=== PATIENT | female | born 1950 | race Caucasian/White ===

== ENCOUNTER 2016-09-07 19:18 | Emergency (ER) | payer MEDICARE, BC ==
--- NOTE | 2016-09-07 19:48 | ER Document Report ---
ED Medical Screen (RME) - General Chief Complaint: S/S of Possible Stroke Stated Complaint: STROKE LIKE SYMPTOMS Notes: Patient is complaining of a headache and feeling very nervous. She's concerned that she may be having another stroke. She's had a dull headache all week, but it's gotten bad this afternoon. Her blood pressures been going up and down she' s been nervous and shaking. Has not had any specific neurologic deficits. 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 Patient had a "mini stroke " about 3-1/2 years ago. TRAVEL OUTSIDE OF THE [place] IN LAST 30 DAYS: No - Related Data Allergies/Adverse Reactions: codeine [Codeine] Allergy (Unknown, Verified 09/07/16 19:32) Past Medical History - Past Medical History Cardiac Medical History: Reports: Hx Hypercholesterolemia, Hx Hypertension Neurological Medical History: Reports: Hx Cerebrovascular Accident Renal/ Medical History: Denies: Hx Peritoneal Dialysis Psychiatric Medical History: Reports: Hx Depression Past Surgical History: Reports: Hx Section, Hx Cholecystectomy, Hx Hysterectomy, Hx Vascular Surgery - Right carotid endarterectomy Physical Exam - Vital signs Vitals: Temp Pulse Resp BP Pulse Ox 98.4 F 94 20 172/116 H 98 09/07/16 19:21 09/07/16 19:21 09/07/16 19:21 09/07/16 19:21 09/07/16 19:21 Course - Vital Signs Vital signs: Temp Pulse Resp BP Pulse Ox 98.4 F 94 20 172/116 H 98 09/07/16 19:21 09/07/16 19:21 09/07/16 19:21 09/07/16 19:21 09/07/16 19:21
[2016-09-07 21:36] LABS: ABSOLUTE BASOPHILS # (AUTO) 0.2 10^3/uL (0.0-0.2); ABSOLUTE EOSINOPHILS # (AUTO) 0.3 10^3/uL (0.0-0.6); ABSOLUTE LYMPHOCYTES (AUTO) 2.3 10^3/uL (0.5-4.7); ABSOLUTE MONOCYTES (AUTO) 0.8 10^3/uL (0.1-1.4); ABSOLUTE NEUT (AUTO) 4.8 10^3/uL (1.7-8.2); BASOPHILS % (AUTO) 2.8 % (0-2); EOSINOPHILS % (AUTO) 3.7 % (0-6); HEMATOCRIT 44.6 % (36.0-47.0); HEMOGLOBIN 14.5 g/dL (12.0-15.5); HGB HCT DIFFERENCE -1.1; LYMPHOCYTES % (AUTO) 27.5 % (13-45); MEAN CORPUSCULAR HEMOGLOBIN 28.9 pg (27.0-33.4); MEAN CORPUSCULAR HGB CONC 32.5 g/dL (32.0-36.0); MEAN CORPUSCULAR VOLUME 89 fl (80-97); MONOCYTES % (AUTO) 9.5 % (3-13); RED BLOOD COUNT 5.01 10^6/uL (3.72-5.28); SEGMENTED NEUTROPHILS % (AUTO) 56.5 % (42-78); WHITE BLOOD COUNT 8.4 10^3/uL (4.0-10.5)
[2016-09-07 22:02] LABS: ALANINE AMINOTRANSFERASE 22 U/L (9-52); ALBUMIN 4.4 g/dL (3.5-5.0); ALKALINE PHOSPHATASE 89 U/L (38-126); ANION GAP 14 (5-19); ASPARTATE AMINO TRANSFERASE 30 U/L (14-36); BILIRUBIN,DIRECT 0.3 mg/dL (0.0-0.4); BILIRUBIN,TOTAL 0.5 mg/dL (0.2-1.3); BLOOD UREA NITROGEN 12 mg/dL (7-20); CALCIUM 11.1 mg/dL (8.4-10.2); CARBON DIOXIDE 25 mmol/L (22-30); CHLORIDE 103 mmol/L (98-107); CREATINE KINASE 45 U/L (30-135); CREATININE RESULT 0.82 mg/dL (0.52-1.25); GLUCOSE 98 mg/dL (75-110); POTASSIUM 4.2 mmol/L (3.6-5.0); SODIUM 142.3 mmol/L (137-145); TOTAL PROTEIN 7.8 g/dL (6.3-8.2)
[2016-09-07] MEDS ORDERED: LISINOPRIL 10 MG TABLET PO ONE (22:15)
[2016-09-07 22:19] LABS: TROPONIN I < 0.012 ng/mL
--- NOTE | 2016-09-07 22:19 | ER Document Report ---
ED General - General Chief Complaint: S/S of Possible Stroke Stated Complaint: STROKE LIKE SYMPTOMS Notes: Patient is a 66-year-old female who presents with concerns about elevated blood pressure. States that she developed a gradual onset, dull, throbbing, diffuse headache today. Nothing improved or worsen the headache. States she's had similar headaches when she's had high blood pressure in the past that she took her blood pressure home and noted a systolic blood pressure of 220. This prompted her to come to the emergency department. She did attempt to treat her symptoms at home by doubling her dose of atenolol to 100 mg. States since doing so she has had near complete resolution of her headache. She denies any associated weakness, numbness confusion, vomiting, neck pain, chest pain or shortness of breath. She has not seen her primary care doctor regarding today' s concerns. She has no prior history of aneurysmal bleeds. States this headache feels identical to prior headaches that she's had in association with hypertension. TRAVEL OUTSIDE OF THE [place] IN LAST 30 DAYS: No - Related Data Allergies/Adverse Reactions: codeine [Codeine] Allergy (Unknown, Verified 09/07/16 19:32) Past Medical History - General Information source: Patient - Social History Smoking Status: Never Smoker Chew tobacco use (# tins/day): No Frequency of alcohol use: None Drug Abuse: None Lives with: Spouse/Significant other Family History: Reviewed & Not Pertinent Patient has suicidal ideation: No Patient has homicidal ideation: No - Past Medical History Cardiac Medical History: Reports: Hx Hypercholesterolemia, Hx Hypertension Neurological Medical History: Reports: Hx Cerebrovascular Accident Renal/ Medical History: Denies: Hx Peritoneal Dialysis Psychiatric Medical History: Reports: Hx Depression Past Surgical History: Reports: Hx Section, Hx Cholecystectomy, Hx Hysterectomy, Hx Vascular Surgery - Right carotid endarterectomy - Immunizations Hx Diphtheria, Pertussis, Tetanus Vaccination: - unknown Review of Systems - Review of Systems Notes: Constitutional: Negative for fever. HENT: Negative for sore throat. Eyes: Negative for visual changes. Cardiovascular: Negative for chest pain. Respiratory: Negative for shortness of breath. Gastrointestinal: Negative for abdominal pain, vomiting or diarrhea. Genitourinary: Negative for dysuria. Musculoskeletal: Negative for back pain. Skin: Negative for rash. Neurological: Positive for headaches, negative for weakness or numbness. 10 point ROS negative except as marked above and in HPI. Physical Exam - Vital signs Vitals: Temp Pulse Resp BP Pulse Ox 98.4 F 94 20 172/116 H 98 09/07/16 19:21 09/07/16 19:21 09/07/16 19:21 09/07/16 19:21 09/07/16 19:21 Interpretation: Hypertensive Notes: PHYSICAL EXAMINATION: GENERAL: Well-appearing, well-nourished and in no acute distress. HEAD: Atraumatic, normocephalic. EYES: Pupils equal round and reactive to light, extraocular movements intact, sclera anicteric, conjunctiva are normal. ENT: nares patent, oropharynx clear without exudates. Moist mucous membranes. NECK: Normal range of motion, supple without lymphadenopathy LUNGS: Breath sounds clear to auscultation bilaterally and equal. No wheezes rales or rhonchi. HEART: Regular rate and rhythm without murmurs ABDOMEN: Soft, nontender, normoactive bowel sounds. No guarding, no rebound. No masses appreciated. EXTREMITIES: Normal range of motion, no pitting or edema. No cyanosis. NEUROLOGICAL: Face symmetric. Tongue protrudes midline. Extraocular motions intact. Pupils are 2 mm and equally reactive. Normal speech, normal gait. 5 out of 5 strength in both the distal and proximal upper and lower extremities bilaterally. Sensation is grossly intact throughout. Finger to nose testing normal. Pronator drift normal. PSYCH: Normal mood, normal affect. SKIN: Warm, Dry, normal turgor, no rashes or lesions noted. Course - Re-evaluation Re-evalutation: 09/07/16 22:16 Patient presents with headache that is now resolved in the setting of having elevated blood pressure at home up to 220 systolic. Patient has had similar presentations in the past. She takes only atenolol 100 mg daily for her blood pressure. Physical examination is unremarkable without any focal neurologic deficits. Patient denies any acute onset of the headache and is described as a gradual progressively worsening headache. The headache did start 3 hours prior to arrival in the emergency and the CT of the head was obtained within 6 hours of headache onset. This is normal without any evidence of subarachnoid hemorrhage for which I have a low clinical index of suspicion. Will therefore not pursue a lumbar puncture at this time. The remainder patient's laboratories are unremarkable. She denies any chest pain or shortness of breath. I do not suspect a pulmonary embolism, aortic dissection or ACS. Patient states recent scan the emergency department tonight is her primary concern was her blood pressure. She will be started on lisinopril 20 mg daily in addition to her atenolol. I dose of this is been given to her here in the emergency department.At this time will discharge with return precautions and follow-up recommendations. Verbal discharge instructions given a the bedside and opportunity for questions given. Medication warnings reviewed. Patient is in agreement with this plan and has verbalized understanding of return precautions and the need for primary care follow-up in the next 24-72 hours. - Vital Signs Vital signs: Temp Pulse Resp BP Pulse Ox 98.2 F 94 16 165/83 H 94 09/07/16 22:50 09/07/16 20:29 09/07/16 22:50 09/07/16 22:50 09/07/16 22:50 - Laboratory Result Diagrams: 09/07/16 21:20 09/07/16 21:20 Laboratory results interpreted by me: 09/07/16 09/07/16 21:20 21:20 RDW 15.0 H Basophils % 2.8 H Calcium 11.1 H - Diagnostic Test Radiology reviewed: Image reviewed, Reports reviewed Radiology results interpreted by me: 09/08/16 03:13 CT head: No acute intracranial bleed - EKG Interpretation by Me Additional EKG results interpreted by me: 09/08/16 03:14 Normal sinus rhythm. Rate 64. No ST elevations or depressions. LVH. QTC is 417 Discharge - Discharge Clinical Impression: Essential hypertension Headache Qualifiers: Headache type: unspecified Headache chronicity pattern: acute headache Intractability: not intractable Qualified Code(s): R51 - Headache Condition: Good Disposition: HOME, SELF-CARE Additional Instructions: You were seen today for blood pressure that was high. This is a long-term risk factor for multiple medical problems including heart attack and stroke. However, the blood pressure in of itself will not cause you to have an acute stroke or heart attack over the course of just several days or weeks. You need to have a gradual reduction of your blood pressure back to normal levels over the next several months in conjunction with your primary care physician. Return if you develop recurrent headache, weakness, numbness, chest pain, pass out, or have any other symptoms that are concerning to you. Prescriptions: Lisinopril 20 mg PO DAILY #30 tablet Referrals: KAIA HOWELL MD [Primary Care Provider] - Follow up in 3-5 days
[2016-09-07 23:00] VITALS: BP 165/83
--- NOTE | 2016-09-08 22:24 | EKG REPORT ---
SEVERITY:- ABNORMAL ECG - SINUS RHYTHM PROBABLE LEFT ATRIAL ABNORMALITY PROBABLE LEFT VENTRICULAR HYPERTROPHY : Confirmed by: Marisabel Bennett MD 08-Sep-2016 22:24:19
== END 2016-09-07 22:50 | disposition home or self-care (01) ==
LOC: ER 19:18
DX: I10 Essential (primary) hypertension (principal); R51 Headache; Z79.899 Other long term (current) drug therapy; Z86.73 Personal history of transient ischemic attack (TIA), and cerebral infarction without residual deficits; Z88.5 Allergy status to narcotic agent
CPT/HCPCS: 93005; 99285; 36415; 82553; 82550; 85025; 80053; 84484; 70450; 93010; A9270

== ENCOUNTER 2016-12-05 17:45 | Inpatient (IN) | payer MEDICARE, BC ==
[2016-12-05 18:24] LABS: ABSOLUTE BASOPHILS # (AUTO) 0.1 10^3/uL (0.0-0.2); ABSOLUTE EOSINOPHILS # (AUTO) 0.3 10^3/uL (0.0-0.6); ABSOLUTE LYMPHOCYTES (AUTO) 1.6 10^3/uL (0.5-4.7); ABSOLUTE MONOCYTES (AUTO) 0.8 10^3/uL (0.1-1.4); ABSOLUTE NEUT (AUTO) 5.6 10^3/uL (1.7-8.2); BASOPHILS % (AUTO) 1.2 % (0-2); EOSINOPHILS % (AUTO) 3.4 % (0-6); HEMATOCRIT 38.7 % (36.0-47.0); HEMOGLOBIN 12.5 g/dL (12.0-15.5); HGB HCT DIFFERENCE -1.2; LYMPHOCYTES % (AUTO) 18.6 % (13-45); MEAN CORPUSCULAR HEMOGLOBIN 30.1 pg (27.0-33.4); MEAN CORPUSCULAR HGB CONC 32.4 g/dL (32.0-36.0); MEAN CORPUSCULAR VOLUME 93 fl (80-97); MONOCYTES % (AUTO) 10.1 % (3-13); RED BLOOD COUNT 4.16 10^6/uL (3.72-5.28); RED CELL DISTRIBUTION WIDTH 14.1 % (11.5-14.0); SEGMENTED NEUTROPHILS % (AUTO) 66.7 % (42-78); WHITE BLOOD COUNT 8.3 10^3/uL (4.0-10.5)
--- NOTE | 2016-12-05 18:29 | ER Document Report ---
ED Syncope and Near Syncope - General Chief Complaint: Syncope Stated Complaint: SYNCOPE Time Seen by Provider: 12/05/16 18:27 Mode of Arrival: Medic Information source: Patient, Emergency Med Personnel TRAVEL OUTSIDE OF THE [place] IN LAST 30 DAYS: No - HPI Patient complains to provider of: Fainting Episode witnessed (by whom): No Multiple episodes (how many): 2 When did episodes begin: THIS AFTERNOON When was most recent episode: JUST PRIOR TO CALL TO EMS Symptoms prior to episode: Lightheaded Position/Activity at time of episode: Sitting - STOOD UP FROM BARSTOOL Quality of pain: Other - SORE THROAT Severity: Mild Context: Collapsed, Lost consciousness - Related Data Allergies/Adverse Reactions: codeine [Codeine] Allergy (Unknown, Verified 09/07/16 19:32) Past Medical History - General Information source: Patient - Social History Smoking Status: Unknown if Ever Smoked Cigarette use (# per day): No Chew tobacco use (# tins/day): No Frequency of alcohol use: None Drug Abuse: None Lives with: Alone Family History: Reviewed & Not Pertinent Patient has suicidal ideation: No Patient has homicidal ideation: No - Past Medical History Cardiac Medical History: Reports: Hx Hypercholesterolemia, Hx Hypertension Pulmonary Medical History: Reports: None EENT Medical History: Reports: None Neurological Medical History: Reports: Hx Cerebrovascular Accident, Other - PARKINSON'S DIS. Endocrine Medical History: Reports: None Renal/ Medical History: Reports: None. Denies: Hx Peritoneal Dialysis Malignancy Medical History: Reports: None GI Medical History: Reports: None. Denies: Hx Hepatitis Musculoskeltal Medical History: Reports None Skin Medical History: Reports None Psychiatric Medical History: Reports: None, Hx Depression Past Surgical History: Reports: Hx Section, Hx Cholecystectomy, Hx Hysterectomy, Hx Vascular Surgery - Right carotid endarterectomy - Immunizations Hx Diphtheria, Pertussis, Tetanus Vaccination: - unknown Review of Systems - Review of Systems Constitutional: Chills, Diaphoresis, Weakness. denies: Fever EENT: Throat pain Cardiovascular: Syncope, Lightheaded. denies: Heart racing Respiratory: No symptoms reported Gastrointestinal: No symptoms reported Female Genitourinary: Post menopausal Musculoskeletal: No symptoms reported Skin: No symptoms reported Neurological/Psychological: Lost consciousness Physical Exam - Vital signs Vitals: Temp Pulse Resp BP Pulse Ox 97.7 F 66 16 85/56 L 88 L 12/05/16 18:02 12/05/16 18:02 12/05/16 18:02 12/05/16 18:02 12/05/16 18:02 Interpretation: Hypotensive. No: Tachycardic, Tachypneic, Febrile - General General appearance: Appears well, Alert In distress: None - HEENT Head: Normocephalic Eyes: Normal. No: Pale conjunctiva Conjunctiva: Normal Ears: Normal Nasal: Normal Mouth/Lips: Normal Mucous membranes: Normal Pharynx: Erythema - SLIGHT. No: Exudate, Peritonsillar abscess, Tonsillar hypertrophy, Uvular edema Neck: Normal - Respiratory Respiratory status: No respiratory distress Breath sounds: Normal - Cardiovascular Rhythm: Regular Heart sounds: Normal auscultation Murmur: No - Abdominal Inspection: Normal Bowel sounds: Normal - Extremities General upper extremity: Normal inspection General lower extremity: Normal inspection - Neurological Neuro grossly intact: Yes Cognition: Normal Orientation: AAOx4 - Psychological Associated symptoms: Normal affect, Normal mood - Skin Skin Temperature: Warm Skin Moisture: Dry Skin Color: Normal Skin Turgor: Elastic Course - Vital Signs Vital signs: Temp Pulse Resp BP Pulse Ox 97.7 F 66 12 126/56 H 100 12/05/16 18:02 12/05/16 18:02 12/05/16 21:46 12/05/16 21:46 12/05/16 21:31 - Laboratory Result Diagrams: 12/05/16 18:02 12/05/16 18:02 Laboratory results interpreted by me: 12/05/16 12/05/16 12/05/16 18:02 18:02 19:55 RDW 14.1 H BUN 29 H Creatinine 2.41 H Est GFR ( Amer) 24 L Est GFR (Non-Af Amer) 20 L Glucose 114 H Direct Bilirubin 0.6 H AST 161 H ALT 284 H Alkaline Phosphatase 220 H Ur Leukocyte Esterase SMALL H - EKG Interpretation by Mn EKG shows normal: Sinus rhythm. abnormal: ST-T Waves - T ABNLS ANT/LAT., NS Rate: Normal Rhythm: NSR - Consults DR. CAVAZOS Time consulted: 22:25 Consulted provider: will come to ER Discharge - Discharge Clinical Impression: Syncope and collapse, Abnormal liver function tests Hypotension Qualifiers: Hypotension type: unspecified hypotension type Qualified Code(s): I95.9 - Hypotension, unspecified Renal failure, acute Qualifiers: Acute renal failure type: unspecified Qualified Code(s): N17.9 - Acute kidney failure, unspecified Condition: Fair Disposition: ADMITTED OBSERVATION Unit Admitted: Telemetry
[2016-12-05 18:37] LABS: ALBUMIN 3.7 g/dL (3.5-5.0); ANION GAP 12 (5-19); ASPARTATE AMINO TRANSFERASE 161 U/L (14-36); BLOOD UREA NITROGEN 29 mg/dL (7-20); CALCIUM 9.5 mg/dL (8.4-10.2); CARBON DIOXIDE 23 mmol/L (22-30); CHLORIDE 104 mmol/L (98-107); CREATININE RESULT 2.41 mg/dL (0.52-1.25); GLUCOSE 114 mg/dL (75-110); POTASSIUM 4.1 mmol/L (3.6-5.0); SODIUM 138.7 mmol/L (137-145); TOTAL PROTEIN 6.9 g/dL (6.3-8.2)
[2016-12-05 18:39] LABS: ALANINE AMINOTRANSFERASE 284 U/L (9-52); ALKALINE PHOSPHATASE 220 U/L (38-126); BILIRUBIN,DIRECT 0.6 mg/dL (0.0-0.4); BILIRUBIN,TOTAL 0.6 mg/dL (0.2-1.3); CREATINE KINASE 63 U/L (30-135)
[2016-12-05] MEDS ORDERED: NORMAL SALINE 1000 ML 1,000 ML IV ONE (18:44)
--- NOTE | 2016-12-05 18:48 | RADIOLOGY REPORT (SQ) ---
EXAM DESCRIPTION: CHEST SINGLE VIEW COMPLETED DATE/TIME: 12/05/2016 6:39 pm REASON FOR STUDY: syncope COMPARISON: March 2013 EXAM PARAMETERS: NUMBER OF VIEWS: One view. TECHNIQUE: Single frontal radiographic view of the chest acquired. RADIATION DOSE: NA LIMITATIONS: None. FINDINGS: LUNGS AND PLEURA: No opacities, masses or pneumothorax. No pleural effusion. MEDIASTINUM AND HILAR STRUCTURES: No masses. Contour normal. HEART AND VASCULAR STRUCTURES: Heart normal in size. Normal vasculature. BONES: No acute findings. HARDWARE: None in the chest. OTHER: No other significant finding. IMPRESSION: NO ACUTE RADIOGRAPHIC FINDING IN THE CHEST. TECHNICAL DOCUMENTATION: JOB ID: [id number]
[2016-12-05 18:49] LABS: CREATINE KINASE MB 0.91 ng/mL (<4.55)
[2016-12-05 18:51] LABS: TROPONIN I < 0.012 ng/mL
--- NOTE | 2016-12-05 19:59 | EKG REPORT ---
SEVERITY:- ABNORMAL ECG - SINUS RHYTHM NONSPECIFIC T ABNORMALITIES, ANT-LAT LEADS : Confirmed by: Hans Dey MD 05-Dec-2016 19:59:13
[2016-12-05 20:22] LABS: APPEARANCE,URINE SLIGHTLY-CLOUDY; BILIRUBIN,URINE NEGATIVE (NEGATIVE); GLUCOSE, URINE NEGATIVE (NEGATIVE); KETONES,URINE NEGATIVE (NEGATIVE); LEUKOCYTE ESTERASE,URINE SMALL (NEGATIVE); NITRITE,URINE NEGATIVE (NEGATIVE); PROTEIN,URINE NEGATIVE (NEGATIVE); URINE SPECIFIC GRAVITY 1.006; UROBILINOGEN,URINE NEGATIVE mg/dL (<2.0)
[2016-12-06 00:54] LABS: ANION GAP 8 (5-19); BLOOD UREA NITROGEN 25 mg/dL (7-20); CALCIUM 8.6 mg/dL (8.4-10.2); CARBON DIOXIDE 23 mmol/L (22-30); CHLORIDE 109 mmol/L (98-107); CREATININE RESULT 1.76 mg/dL (0.52-1.25); GLUCOSE 103 mg/dL (75-110); POTASSIUM 3.8 mmol/L (3.6-5.0); SODIUM 140.2 mmol/L (137-145)
[2016-12-06] MEDS ORDERED: IPRATROPIUM/ALBUTEROL 0.5-2.5 MG/3 ML AMPUL NEB PRN (02:39)
[2016-12-06] MEDS ORDERED: ACETAMINOPHEN 325 MG TABLET PO PRN (02:44)
[2016-12-06] MEDS ORDERED: PROMETHAZINE HCL 25 MG TABLET PO PRN (02:44)
--- NOTE | 2016-12-06 03:33 | PDOC H&P ---
History of Present Illness Admission Date/PCP: 12/05/16 23:00 [facility] Patient complains of: syncope History of Present Illness: TAVIA PATEL is a 66 year old female with underlying hypertension , prior stroke, which has left her with mild occasional expressive aphasia and mild right facial droop, chronic back pain, COPD, history of nephrolithiasis, mild depression without suicidal or homicidal ideation, who presents to the emergency room for evaluation of above complaint. Patient has been discussed with emergency room physician who evaluated the patient. Patient describes poor appetite over the last 2 days; "not interested in food." She has had nausea and dry heaves. Chronic diarrhea, without recent change. The morning of the fourth, she began experiencing "trapped gas" epigastric pain that decreased with lying down. Later that day, she suffered 2 unwitnessed syncopal episodes. Think she probably struck her head each time. Uncertain how long she was out, so to speak. Did not bite her tongue. No fecal or urinary incontinence. No seizure history. No prior syncopal episode. Denies any underlying biliary disease. States her urine has been no darker than usual. No recent change in her medications. Compliant with same. Was hypotensive initially upon arrival, but pressures have stabilized nicely with IV fluid. Complaining of only mild left elbow discomfort where she fell. Laboratory results are listed in [employer] and are reviewed. X-ray summary results are listed below, with full report(s) reviewed. . EKG reviewed. Social history/personal habits: . 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 No tobacco use for 2-1/2 years. No illicit drug use. Glass of wine 3 times a week. Allergies/adverse reactions are listed in [employer] and are reviewed. No problems with oxycodone. Home medications initially autopopulated into [employer] may not accurately reflect patient's true medications, dosages, and/or frequencies. Bottle review of medications with patient. REVIEW OF SYSTEMS: Constitutional: No fever or chills. Eyes: Wears glasses. ENT: No swallowing problems or complaints. Denies hearing loss. Pulmonary: No current complaints. Cardiovascular: See history and present illness. Gastrointestinal: See history and present illness. Skin: No current complaints, including rashes. Hematologic: Easy bruising. Neurologic: See history and present illness. Musculoskeletal: See history and present illness. Psychiatric: Mild depression. Denies suicidal or homicidal ideation Endocrine: No current complaints, including polyuria. Genitourinary: No current complaints, including dysuria. PHYSICAL EXAMINATION: 5 feet 6 inches tall. 58.8 kg. BMI 20.9 kg/m. Temperature 98.1. Pulse 71 and regular. Blood pressure 100/40. Respirations are 16 and unlabored. 94 % saturation on 2 L oxygen per nasal cannula. Thin otherwise well-developed somewhat chronically ill-appearing female who appears perhaps a bit older than her stated age. Pleasant awake alert and cooperative. No obvious distress other than somewhat anxious. Mild tremor. Skin is warm and dry. No grossly obvious evidence of rash in areas of skin examined. No subcutaneous nodules palpated. ENT: Hearing grossly normal to normal conversation. Tongue midline on protrusion pink and slightly moist. Eyes: No scleral icterus. Pupils equal and reactive to light at 4 mm. [place] conjunctivae. No raccoon eyes. Neck is supple and nontender to gentle active range of motion and palpation. Midline trachea. No palpable thyroid nodule mass enlargement or tenderness. Lymphatic: No palpable cervical or clavicular nodes. Neck and lymphatic exams limited by patient body habitus. Psychiatric: Reasonable insight into acute and chronic medical issues. Oriented to time location and why here. Lungs: Auscultation reveals clear and equal breath sounds bilaterally. No use of accessory respiratory muscles. Cardiovascular: Heart regular rate and rhythm, without gallop murmur or rub. No carotid or abdominal aortic bruits. No ankle or pedal edema. Palpable dorsalis pedis pulses. Abdomen:soft slightly distended nontender with positive bowel sounds. Unable to adequately evaluate abdomen for masses or organomegaly due to distention. Extremities: Feet are warm and dry. No calf tenderness to compression. No grossly obvious visual evidence of calf swelling. Gentle manipulation of lower extremities fails to reveal any obvious evidence of injury or instability to knees hips or ankles. Excellent active and passive range of motion of left elbow; no obvious evidence of injury or instability. Neurologic: Moves upper extremities grossly normally. Patellar reflexes absent. Absent Babinski. Light touch is intact at feet. Dorsiflexion and plantarflexion of feet 5 / 5 and symmetric. Past Medical History Cardiac Medical History: Reports: Hyperlipidema, Hypertension Denies: Congestive Heart Failure, DVT, Myocardial Infarction, Pulmonary Embolism Pulmonary Medical History: Reports: Chronic Obstructive Pulmonary Disease (COPD) Denies: Sleep Apnea EENT Medical History: Reports: Eyes - Glasses Denies: Ears, Throat Neurological Medical History: Reports: Ischemic CVA - Prior stroke; occasional mild expressive dysphasia and right facial droop, Other - PARKINSON'S DIS. Denies: Hemorrhagic CVA, Seizures Endocrine Medical History: Reports: Other - History of thyroid nodules, followed by ultrasound Denies: Diabetes Mellitus Type 1, Diabetes Mellitus Type 2, Hyperthyroidism, Hypothyroidism Renal/ Medical History: Reports: Other - History of nephrolithiasis Malignancy Medical History: Reports: None GI Medical History: Denies: Cirrhosis, Gastroesophageal Reflux Disease, Hepatitis, Peptic Ulcer Disease Musculoskeltal Medical History: Reports: Other - Chronic back pain Skin Medical History: Reports: None Psychiatric Medical History: Reports: None, Depression - Denies suicidal or homicidal ideation Denies: Alcohol Dependency, General Anxiety Disorder, Substance Abuse, Tobacco Dependency Hematology: Reports: Other - Easy bruising Infectious Medical History: Denies: Clostridium Difficile, Hepatitis B, Hepatitis C, Methicillin- Resistant Staph Aureus Past Surgical History Past Surgical History: Reports: Section, Cholecystectomy, Hysterectomy , Vascular Surgery - Right carotid endarterectomy Social History Information Source: Patient, Emergency Med Personnel, [facility] Records Lives with: Spouse/Significant other Smoking Status: Former Smoker Number of Years Smokin Last Time Smoked: 3 yrs ago Frequency of Alcohol Use: Occasional - Glass of wine 3 times a week Hx Recreational Drug Use: No Drugs: None Hx Prescription Drug Abuse: No - Advance Directive Resuscitation Status: Full Code Surrogate healthcare decision maker:: Family History Family History: Reviewed & Not Pertinent Parental Family History Reviewed: Yes - Mother of lung cancer; father at 79. Children Family History Reviewed: Yes - Daughter is hypertensive and diabetic. Sibling(s) Family History Reviewed.: Yes - Sister with rheumatoid arthritis. Medication/Allergy Home Medications: Aspirin [Aspirin 325 mg Tablet] 325 mg PO DAILY 12/05/16 Atenolol 100 mg PO DAILY 12/05/16 Atorvastatin Calcium 40 mg PO QHS 12/05/16 Gabapentin 300 mg PO QID 12/05/16 Hydrocodone/Acetaminophen [[place] 5-325 mg Tablet] 1 tab PO TID PRN 12/05/16 Omeprazole 20 mg PO DAILY 12/05/16 Venlafaxine HCl 75 mg PO DAILY 12/05/16 Allergies/Adverse Reactions: codeine [Codeine] Allergy (Unknown, Verified 12/06/16 02:41) Physical Exam Vital Signs: Temp Pulse Resp BP Pulse Ox 98.1 F 71 16 100/40 L 90 L 12/06/16 01:12 12/06/16 01:12 12/06/16 01:12 12/06/16 01:12 12/06/16 01:12 Intake & Output 12/05/16 12/06/16 12/07/16 00:59 00:59 00:59 Weight 58.8 kg Results Laboratory Results: 12/06/16 00:27 12/06/16 00:27 Sodium 140.2 Potassium 3.8 Chloride 109 H Carbon Dioxide 23 Anion Gap 8 BUN 25 H Creatinine 1.76 H Est GFR ( Amer) 35 L Est GFR (Non-Af Amer) 29 L Glucose 103 Calcium 8.6 Impressions: Chest X-Ray 12/05/16 18:16 IMPRESSION: NO ACUTE RADIOGRAPHIC FINDING IN THE CHEST. Assessment & Plan - Diagnosis (1) Blunt head trauma Qualifiers: Encounter type: initial encounter Qualified Code(s): S09.8XXA - Other specified injuries of head, initial encounter Is this a current diagnosis for this admission?: YesPlan: CT scan of brain without contrast. (2) Abnormal liver function tests Is this a current diagnosis for this admission?: YesPlan: Uncertain etiology. Denies underlying biliary disease. Follow-up chemistry. (3) Abnormal urinalysis Is this a current diagnosis for this admission?: YesPlan: Urine culture. We will forego antibiotics at this point in time. (4) Renal failure, acute Qualifiers: Acute renal failure type: unspecified Qualified Code(s): N17.9 - Acute kidney failure, unspecified Is this a current diagnosis for this admission?: YesPlan: Likely prerenal, due to decreased p.o. intake. Follow-up chemistry. Labs improved already with hydration. (5) Syncope and collapse Is this a current diagnosis for this admission?: YesPlan: Likely due to an element of dehydration. IV fluid. Orthostatic vital signs every 4 hours while awake starting at 7 AM. I have strongly encouraged patient not to get out of bed without notifying staff , to avoid a fall with injury. Knee high SCDs for DVT prophylaxis, along with subcutaneous heparin. Impression and plans were discussed with patient who concurs. Time spent in evaluation and management of patient: 67 minutes. (6) Chronic back pain Qualifiers: Back pain location: back pain in unspecified location Back pain laterality: unspecified Qualified Code(s): M54.9 - Dorsalgia, unspecified ; G89.29 - Other chronic pain Is this a current diagnosis for this admission?: YesPlan: No acute worsening of same. As needed pain medication. (7) Diastolic CHF Qualifiers: Congestive heart failure chronicity: chronic Qualified Code(s): I50.32 - Chronic diastolic (congestive) heart failure Is this a current diagnosis for this admission?: YesPlan: No evidence of exacerbation of same. Resume home medications as appropriate once these have been determined and reviewed. (8) HLD (hyperlipidemia) Qualifiers: Hyperlipidemia type: mixed hyperlipidemia Qualified Code(s): E78.2 - Mixed hyperlipidemia Is this a current diagnosis for this admission?: YesPlan: Resume home medications as appropriate once these have been determined and reviewed. (9) HTN (hypertension) Qualifiers: Hypertension type: essential hypertension Qualified Code(s): I10 - Essential (primary) hypertension Is this a current diagnosis for this admission?: YesPlan: We will hold antihypertensives at this point in time.
[2016-12-06 03:34] LABS: ADD ON TESTING BLD IN LAB ACKNOWLEDGE
--- NOTE | 2016-12-06 06:12 | RADIOLOGY REPORT (SQ) ---
EXAM DESCRIPTION: CT HEAD WITHOUT COMPLETED DATE/TIME: 12/06/2016 5:49 am REASON FOR STUDY: syncope w/head trauma R82.90 UNSPECIFIED ABNORMAL FINDINGS IN URINE I10 ESSENTIA L (PRIMARY) HYPERTENSION S09.8XXA OTHER SPECIFIED INJURIES OF HEAD, INITIAL ENCOUNTER COMPARISON: None. TECHNIQUE: Axial images acquired through the brain without intravenous contrast. Images reviewed wi th bone, brain and subdural windows. Images stored on PACS. All CT scanners at this facility use dose modulation, iterative reconstruction, and/or weight based d osing when appropriate to reduce radiation dose to as low as reasonably achievable (ALARA). [facility]: Dose Right [facility]: CareDose [facility]: Dose Right [facility]: Teradose 4D [facility]: [employer] RADIATION DOSE: Up-to-date CT equipment and radiation dose reduction techniques were employed. CTDIv ol: 64.6 mGy. DLP: 1163 mGy-cm. mGy. LIMITATIONS: None. FINDINGS: VENTRICLES: Normal size and contour. CEREBRUM: No masses. No hemorrhage. No midline shift. Normal truong/white matter differentiation. N o evidence for acute infarction. Mild white matter microangiopathy. Mild cerebral volume loss. CEREBELLUM: No masses. No hemorrhage. No alteration of density. No evidence for acute infarction. EXTRAAXIAL SPACES: No fluid collections. No masses. ORBITS AND GLOBE: No intra- or extraconal masses. Normal contour of globe without masses. CALVARIUM: No fracture. PARANASAL SINUSES: No fluid or mucosal thickening. SOFT TISSUES: No mass or hematoma. OTHER: No other significant finding. IMPRESSION: No acute findings. TECHNICAL DOCUMENTATION: JOB ID: [id number] Quality ID # [id number]: Final reports with documentation of one or more dose reduction techniques (e.g., Au tomated exposure control, adjustment of the mA and/or kV according to patient size, use of iterative reconstruction technique) 2010 [employer]- All Rights Reserved
[2016-12-06 06:34] LABS: ALANINE AMINOTRANSFERASE 224 U/L (9-52); ALBUMIN 3.4 g/dL (3.5-5.0); ALKALINE PHOSPHATASE 204 U/L (38-126); ANION GAP 9 (5-19); ASPARTATE AMINO TRANSFERASE 109 U/L (14-36); BILIRUBIN,DIRECT 0.5 mg/dL (0.0-0.4); BILIRUBIN,TOTAL 0.6 mg/dL (0.2-1.3); BLOOD UREA NITROGEN 23 mg/dL (7-20); CALCIUM 9.3 mg/dL (8.4-10.2); CARBON DIOXIDE 23 mmol/L (22-30); CHLORIDE 110 mmol/L (98-107); CREATININE RESULT 1.34 mg/dL (0.52-1.25); GLUCOSE 90 mg/dL (75-110); POTASSIUM 3.7 mmol/L (3.6-5.0); TOTAL PROTEIN 6.6 g/dL (6.3-8.2)
[2016-12-06] MEDS: HEPARIN SOD (PORCINE) 5,000 UNIT/ML 1 ML SYRINGE SUBCUT SCH ×2 (09:38→21:34)
[2016-12-06] MEDS: ASPIRIN 325 MG TABLET PO SCH (09:38)
[2016-12-06] MEDS: NORMAL SALINE 1000 ML 1,000 ML IV PRN (17:29)
--- NOTE | 2016-12-06 18:06 | PDOC PROGRESS REPORT ---
Subjective Progress Note for:: 12/06/16 Subjective:: She is felling better and the diarrhea and loss of appetite have improved.She is now full admit. Physical Exam Vital Signs: Temp Pulse Resp BP Pulse Ox 98.1 F 76 20 126/64 H 95 12/06/16 16:00 12/06/16 16:13 12/06/16 16:00 12/06/16 16:13 12/06/16 16:13 General appearance: PRESENT: no acute distress, cooperative, well-developed, well-nourished Head exam: PRESENT: atraumatic, normocephalic Eye exam: PRESENT: EOMI, PERRLA Ear exam: PRESENT: normal external ear exam, TM's normal bilaterally Mouth exam: PRESENT: neck supple, tongue midline Neck exam: PRESENT: full ROM Respiratory exam: PRESENT: decreased breath sounds, symmetrical Cardiovascular exam: PRESENT: +S1, +S2 Pulses: PRESENT: +2 pedal pulses bilateral GI/Abdominal exam: PRESENT: normal bowel sounds, soft Rectal exam: PRESENT: deferred Extremities exam: PRESENT: full ROM Musculoskeletal exam: PRESENT: full ROM Neurological exam: PRESENT: alert, awake, oriented to person, oriented to place , oriented to time Psychiatric exam: PRESENT: normal mood Results Impressions: Chest X-Ray 12/05/16 18:16 IMPRESSION: NO ACUTE RADIOGRAPHIC FINDING IN THE CHEST. Head CT 12/06/16 00:00 IMPRESSION: No acute findings. Assessment & Plan - Diagnosis (1) Acute kidney injury (nontraumatic) Is this a current diagnosis for this admission?: YesPlan: Ct with IV fluids normal saline at 75 cc/hr; Promethazine 6.25 mg q8h IV prn. Strict input/out chart; daily wt; monitor chemistries daily; Avoid nephrotoxics. (2) COPD (chronic obstructive pulmonary disease) Is this a current diagnosis for this admission?: YesPlan: Ct with Duonebs q6h prn. Smoking ceasstion counseling; Oxygen by N/C at 2 L/min prn. (3) HTN (hypertension) Qualifiers: Hypertension type: essential hypertension Qualified Code(s): I10 - Essential (primary) hypertension Is this a current diagnosis for this admission?: YesPlan: Avoid Losartan/HCTZ 100/25 and Atenolol 100 mg due to hypotension. 2 G sodium diet. (4) HLD (hyperlipidemia) Qualifiers: Hyperlipidemia type: mixed hyperlipidemia Qualified Code(s): E78.2 - Mixed hyperlipidemia Is this a current diagnosis for this admission?: YesPlan: Ct with Atorvastatin 40 mg qhs po; 200 mg cholesterol diet. (5) History of CVA (cerebrovascular accident) Is this a current diagnosis for this admission?: YesPlan: Ct with Aspirin 325 mg qd po. (6) Reflux esophagitis Is this a current diagnosis for this admission?: YesPlan: Ct with Prevacid 30 mg qd po since we do not have Omeprazole in our formulary. (7) DVT prophylaxis Is this a current diagnosis for this admission?: YesPlan: Ct with Heparin [id number] subcut q12h; SCD. - Time Time Spent with patient: 35 or more minutes Smoking Cessation Education: 3 to 10 minutes Medications reviewed and adjusted accordingly: Yes Anticipated discharge: Home Within: within 72 hours - Inpatient Certification Medical Necessity: Failure to Improve With Outpatient Therapy, Significant Comorbidiites Make Outpatient Treatment Too Risky, Need Close Monitoring Due to Risk of Patient Decompensation, Need For IV Fluids, Risk of Complication if Not Cared For in Hospital
[2016-12-06] MEDS ORDERED: ATORVASTATIN CALCIUM 40 MG TABLET PO SCH (22:00)
[2016-12-07] MEDS ORDERED: LANSOPRAZOLE 30 MG TAB.RAP.DR PO SCH (06:00)
[2016-12-07 06:16] LABS: ABSOLUTE EOSINOPHILS # (AUTO) 0.1 10^3/uL (0.0-0.6); ABSOLUTE LYMPHOCYTES (AUTO) 0.6 10^3/uL (0.5-4.7); ABSOLUTE MONOCYTES (AUTO) 0.6 10^3/uL (0.1-1.4); ABSOLUTE NEUT (AUTO) 7.4 10^3/uL (1.7-8.2); BASOPHILS % (AUTO) 0.6 % (0-2); EOSINOPHILS % (AUTO) 1.6 % (0-6); HEMOGLOBIN 12.3 g/dL (12.0-15.5); HGB HCT DIFFERENCE -0.1; LYMPHOCYTES % (AUTO) 6.6 % (13-45); MEAN CORPUSCULAR HEMOGLOBIN 30.4 pg (27.0-33.4); MEAN CORPUSCULAR HGB CONC 33.1 g/dL (32.0-36.0); MEAN CORPUSCULAR VOLUME 92 fl (80-97); MONOCYTES % (AUTO) 6.9 % (3-13); RED BLOOD COUNT 4.03 10^6/uL (3.72-5.28); RED CELL DISTRIBUTION WIDTH 13.7 % (11.5-14.0); SEGMENTED NEUTROPHILS % (AUTO) 84.3 % (42-78); WHITE BLOOD COUNT 8.8 10^3/uL (4.0-10.5)
[2016-12-07 06:34] LABS: ALANINE AMINOTRANSFERASE 176 U/L (9-52); ALBUMIN 3.4 g/dL (3.5-5.0); ALKALINE PHOSPHATASE 252 U/L (38-126); ANION GAP 13 (5-19); ASPARTATE AMINO TRANSFERASE 139 U/L (14-36); BILIRUBIN,TOTAL 1.4 mg/dL (0.2-1.3); BLOOD UREA NITROGEN 15 mg/dL (7-20); CALCIUM 9.1 mg/dL (8.4-10.2); CARBON DIOXIDE 21 mmol/L (22-30); CHLORIDE 108 mmol/L (98-107); CREATININE RESULT 0.82 mg/dL (0.52-1.25); GLUCOSE 86 mg/dL (75-110); POTASSIUM 3.7 mmol/L (3.6-5.0); SODIUM 141.7 mmol/L (137-145); TOTAL PROTEIN 6.1 g/dL (6.3-8.2)
[2016-12-07 07:33] VITALS: BP 145/71
[2016-12-07] MEDS: NORMAL SALINE 1000 ML 1,000 ML IV PRN (09:35)
[2016-12-07] MEDS: HEPARIN SOD (PORCINE) 5,000 UNIT/ML 1 ML SYRINGE SUBCUT SCH (09:35)
[2016-12-07] MEDS: ASPIRIN 325 MG TABLET PO SCH (09:35)
--- NOTE | 2016-12-07 10:03 | PDOC DISCHARGE SUMMARY ---
General - Admit/Disc Date/PCP Admission Date/Primary Care Provider: 12/06/16 16:15 KAIA HOWELL Discharge Date: 12/07/16 - Discharge Diagnosis (1) Acute kidney injury (nontraumatic) Is this a current diagnosis for this admission?: Yes (2) COPD (chronic obstructive pulmonary disease) Is this a current diagnosis for this admission?: Yes (3) HTN (hypertension) Is this a current diagnosis for this admission?: Yes (4) HLD (hyperlipidemia) Is this a current diagnosis for this admission?: Yes (5) History of CVA (cerebrovascular accident) Is this a current diagnosis for this admission?: Yes (6) Reflux esophagitis Is this a current diagnosis for this admission?: Yes (7) DVT prophylaxis Is this a current diagnosis for this admission?: Yes - Additional Information Resuscitation Status: Full Code Discharge Activity: Activity As Tolerated Home Medications: Aspirin [Aspirin 325 mg Tablet] 325 mg PO DAILY 12/05/16 Atenolol 100 mg PO DAILY 12/05/16 Atorvastatin Calcium 40 mg PO QHS 12/05/16 Gabapentin 300 mg PO QID 12/05/16 Hydrocodone/Acetaminophen [[place] 5-325 mg Tablet] 1 tab PO TID PRN 12/05/16 Omeprazole 20 mg PO DAILY 12/05/16 Venlafaxine HCl 75 mg PO DAILY 12/05/16 History of Present Illness History of Present Illness: TAVIA PATEL is a 66 year old female Hospital Course Hospital Course: 66 year old woman who was admitted for acute kidney injury/Hypotension and COPD. She wasa dmitted at telemetry floor and put on IV fluids,held antihypertensives and was on strict in put/out put and daily chemistries and weight. Alol nephrotoxics were held.She had Duonebs and smoking cessation done. She is stable and her kidney function is back to normal and she is back to her baseline and will discharged home today to follow up with her PCP next week. Physical Exam Vital Signs: Temp Pulse Resp BP Pulse Ox 99.5 F 96 20 145/71 H 94 12/07/16 08:00 12/07/16 08:00 12/07/16 08:00 12/07/16 08:00 12/07/16 08:00 Intake & Output 12/06/16 12/07/16 12/08/16 06:59 06:59 06:59 Intake Total 1559 Output Total 1000 Balance 559 General appearance: PRESENT: no acute distress, cooperative, well-developed, well-nourished Head exam: PRESENT: atraumatic, normocephalic Eye exam: PRESENT: EOMI, PERRLA Ear exam: PRESENT: TM's normal bilaterally Mouth exam: PRESENT: moist, neck supple, tongue midline Neck exam: PRESENT: full ROM Respiratory exam: PRESENT: clear to auscultation joshua, symmetrical Cardiovascular exam: PRESENT: +S1, +S2 Pulses: PRESENT: +2 pedal pulses bilateral Vascular exam: PRESENT: normal capillary refill GI/Abdominal exam: PRESENT: normal bowel sounds, soft Rectal exam: PRESENT: deferred Extremities exam: PRESENT: full ROM Musculoskeletal exam: PRESENT: full ROM Neurological exam: PRESENT: alert, awake, oriented to person, oriented to place , oriented to time, CN II-XII grossly intact Psychiatric exam: PRESENT: normal mood Results Laboratory Results: 12/07/16 05:44 12/07/16 05:44 12/07/16 12/07/16 05:44 05:44 WBC 8.8 RBC 4.03 Hgb 12.3 Hct 37.0 MCV 92 MCH 30.4 MCHC 33.1 RDW 13.7 Plt Count 213 Seg Neutrophils % 84.3 H Lymphocytes % 6.6 L Monocytes % 6.9 Eosinophils % 1.6 Basophils % 0.6 Absolute Neutrophils 7.4 Absolute Lymphocytes 0.6 Absolute Monocytes 0.6 Absolute Eosinophils 0.1 Absolute Basophils 0.0 Sodium 141.7 Potassium 3.7 Chloride 108 H Carbon Dioxide 21 L Anion Gap 13 BUN 15 Creatinine 0.82 Est GFR ( Amer) > 60 Est GFR (Non-Af Amer) > 60 Glucose 86 Calcium 9.1 Total Bilirubin 1.4 H AST 139 H ALT 176 H Alkaline Phosphatase 252 H Total Protein 6.1 L Albumin 3.4 L Impressions: Chest X-Ray 12/05/16 18:16 IMPRESSION: NO ACUTE RADIOGRAPHIC FINDING IN THE CHEST. Head CT 12/06/16 00:00 IMPRESSION: No acute findings.
== END 2016-12-07 12:22 | disposition home or self-care (01) | DRG 684 ==
LOC: ER 17:45 → EH 23:00 → UNDOADMOB 23:00 → 5 12-06 01:05 → EH 12-06 01:05 → 5 12-06 02:39 → EH 12-06 02:39 → OBSVTOIN 12-06 16:15
PROVIDERS: ADMIT Internal Medicine; ATTEND Internal Medicine
DX: N17.9 Acute kidney failure, unspecified (principal); I95.9 Hypotension, unspecified; I10 Essential (primary) hypertension; G20 Parkinson's disease; G89.29 Other chronic pain; M54.9 Dorsalgia, unspecified; E78.2 Mixed hyperlipidemia; J44.9 Chronic obstructive pulmonary disease, unspecified; K21.0 Gastro-esophageal reflux disease with esophagitis; R82.90 Unspecified abnormal findings in urine; Z86.73 Personal history of transient ischemic attack (TIA), and cerebral infarction without residual deficits; Z79.82 Long term (current) use of aspirin; Z79.899 Other long term (current) drug therapy
CPT/HCPCS: 36415; 70450; 71010; 80048; 80053; 81001; 82550; 82553; 83690; 83735; 84443; 84484; 85025; 87086; 93005; 93010; 99285; G0378; J1644; J7030

== ENCOUNTER → 2017-03-26 | Outpatient (CLI) | payer MEDICARE, BC ==
--- NOTE | 2017-03-26 16:34 | RADIOLOGY REPORT (SQ) ---
EXAM DESCRIPTION: CAROTID DOPPLER COMPLETED DATE/TIME: 03/26/2017 3:06 pm REASON FOR STUDY: CEREBRAL INFARCTION I63.033 CEREBRAL INFRC DUE TO THOMBOS OF BILATERAL CAROTID A COMPARISON: 03/07/2013 TECHNIQUE: Grayscale ultrasound, Doppler velocity and spectra, and color Doppler images acquired of the extra-cranial carotid and vertebral arteries. Images stored on PACS. LIMITATIONS: None. FINDINGS: RIGHT CAROTID CCA Velocities: Within normal limits. ICA Velocities Peak systolic 1.32 m/s. End diastolic 0.42 m/s. Proximal ICA/CCA peak systolic ratio 1.9. Spectra normal. No significant plaque. LEFT CAROTID CCA Velocities: Within normal limits. ICA Velocities Chronic occlusion. VERTEBRAL ARTERIES: Antegrade flow. Normal waveforms. SUBCLAVIAN ARTERIES: Not imaged. OTHER: No other significant finding. IMPRESSION: Less than 50% stenosis of the right ICA. Chronic occlusion of the left ICA. COMMENT: Quality ID #[id number]: Velocity criteria are extrapolated from the diameter data as defined by t he Society of Radiologists in Ultrasound Consensus Conference. Radiology 2003: 229; 340-346. TECHNICAL DOCUMENTATION: JOB ID: [id number]- All Rights Reserved
== END ==
LOC: SP 13:49
PROVIDERS: ATTEND Internal Medicine
DX: I63.033 Cerebral infarction due to thrombosis of bilateral carotid arteries (principal)
CPT/HCPCS: 93880

== ENCOUNTER → 2018-08-05 | Outpatient (CLI) | payer MEDICARE, BC ==
--- NOTE | 2018-08-05 13:36 | WOMENS IMAGING REPORT ---
EXAM DESCRIPTION: U/S THYROID/ST TIS HEAD NECK COMPLETED DATE/TIME: 08/05/2018 1:21 pm REASON FOR STUDY: Z12.31 ROUTINE BILATERAL SCREENING, E04.1 NONTOXIC SINGLE THYROID NODULE Z12.31 E NCNTR SCREEN MAMMOGRAM FOR MALIGNANT NEOPLASM OF AYDIN E04.1 NONTOXIC SINGLE THYROID NODULE COMPARISON: None. TECHNIQUE: Dynamic and static truong-scale images acquired of the thyroid gland. Selected additional c olor/power Doppler images recorded. All images stored to PACS. LIMITATIONS: None. FINDINGS: RIGHT LOBE: The right lobe of the thyroid gland measures 3.9 x 1.4 x 1.4 cm, normal size. Homogeneous echotexture. No cystic or solid masses. LEFT LOBE: The left lobe of the thyroid gland measures 3.4 x 1.3 x 1.4 cm, normal size. Homogeneous echotexture. No cystic or solid masses. ISTHMUS: The isthmus measures 2.6 mm in AP diameter, normal size. Homogeneous echotexture. No cyst ic or solid masses. OTHER: Extensive atherosclerotic plaque in the left carotid bulb. Chronic occlusion of the left ICA , demonstrated on Carotid Doppler ultrasound examinations dated 03/26/2017 and 03/07/2013. IMPRESSION: 1. NORMAL THYROID ULTRASOUND. 2. Additional finding as above. TECHNICAL DOCUMENTATION: JOB ID: [id number] [employer]- All Rights Reserved Reading location - IP/workstation name: [email or web address]
--- NOTE | 2018-08-05 14:46 | WOMENS IMAGING REPORT ---
EXAM DESCRIPTION: BILAT SCREENING MAMMO W/CAD COMPLETED DATE/TIME: 08/05/2018 12:53 pm REASON FOR STUDY: Z12.31 ROUTINE BILATERAL SCREENING, Z12.31 ENCNTR SCREEN MAMMOGRAM FOR MALIGNANT NEOPLASM OF AYDIN E04.1 NONTOXIC SINGLE THYROID NODULE COMPARISON: None. TECHNIQUE: Standard craniocaudal and mediolateral oblique views of each breast recorded using digita l acquisition. Additional "push-back" craniocaudal and mediolateral oblique images acquired. LIMITATIONS: None. FINDINGS: IMPLANTS: Bilateral subpectoral implants. Findings present which are benign by mammographic criteria. No suspicious masses, calcifications or architectural distortion. Read with the assistance of CAD. .[facility] - R2 Cenova Version 1.3 .[facility] - R2 Cenova Version 2.1 .[facility] - R2 Cenova Version 2.4 .[facility] - R2 Cenova Version 2.4 .[facility] - R2 Patient Account Liaison Version 9.2 Benign mammographic findings may include one or more of the following: Smooth masses, popcorn/rim/co arse calcifications, asymmetries, post-procedure changes, and lesions with long-standing stability. IMPRESSION: BENIGN MAMMOGRAPHIC FINDINGS. BIRADS 2 BREAST DENSITY: b. There are scattered areas of fibroglandular density. BIRAD: 2 BENIGN FINDING(S) RECOMMENDATION: ROUTINE SCREENING COMMENT: The patient has been notified of the results by letter per SA requirements. Additional no tification policies are in place for contacting patient with suspicious or incomplete findings. Quality ID #[id number]: The [employer] recommends an annual screening mammogram for women aged 40 years or over. This facility utilizes a reminder system to ensure that all patients receive reminder letters, and/or direct phone calls for appointments. This includes reminders for routine scr eening mammograms, diagnostic mammograms, or other Breast Imaging Interventions when appropriate. Th is patient will be placed in the appropriate reminder system. The [employer] ([employer]) has developed recommendations for screening MRI of the breast s in certain patient populations, to be used in conjunction with mammography. Breast MRI surveillanc e may be appropriate for women with more than 20% lifetime risk of developing breast cancer as deter mined by genetic testing, significant family history of the disease, or history of mantle radiation f or Hodgkins Disease. ACR Practice Guidelines 2008. TECHNICAL DOCUMENTATION: FINDING NUMBER: (1) ASSESSMENT: (1) JOB ID: [id number] [employer]- All Rights Reserved Reading location - IP/workstation name: [email or web address]
== END ==
LOC: WI 11:50
PROVIDERS: ATTEND Internal Medicine
DX: Z12.31 Encounter for screening mammogram for malignant neoplasm of breast (principal); E04.1 Nontoxic single thyroid nodule
CPT/HCPCS: 76536; 77067

== ENCOUNTER → 2018-08-30 | Outpatient (CLI) | payer MEDICARE, BC ==
--- NOTE | 2018-08-30 11:49 | RADIOLOGY REPORT (SQ) ---
EXAM DESCRIPTION: U/S ABDOMEN COMPLETE W/O DOP COMPLETED DATE/TIME: 08/30/2018 10:15 am REASON FOR STUDY: UPPER ABD PAIN (R10.10) R10.10 UPPER ABDOMINAL PAIN, UNSPECIFIED COMPARISON: None. TECHNIQUE: Dynamic and static grayscale images acquired of the abdomen and recorded on PACS. Additio nal selected color Doppler and spectral images recorded. Note: Study does not meet criteria for complete doppler/duplex scan LIMITATIONS: None. FINDINGS: PANCREAS: No masses. Visualized pancreatic duct normal caliber. LIVER: No masses. Echotexture normal. LIVER VASCULATURE: Normal directional flow of the main portal vein and hepatic veins. GALLBLADDER: Surgically absent. ULTRASOUND-DETECTED CARDOSO'S SIGN: Not applicable. INTRAHEPATIC DUCTS AND COMMON DUCT: CBD and intrahepatic ducts normal caliber. No filling defects. INFERIOR VENA CAVA: Patent. AORTA: No aneurysm. RIGHT KIDNEY: Normal size, 9.2 cm. Normal echogenicity. No solid or suspicious masses. No hydr onephrosis. No calcifications. LEFT KIDNEY: Normal size, 9.7 cm. Normal echogenicity. No solid or suspicious masses. No hydro nephrosis. There is a 7 mm echogenic focus in a middle calyx. SPLEEN: Not well seen. 8.4 cm. PERITONEAL AND PLEURAL SPACES: No ascites or effusions. OTHER: No other significant finding. IMPRESSION: There appears to be a 7 mm intrarenal calculus in the left kidney. No other acute findi ngs. TECHNICAL DOCUMENTATION: JOB ID: [id number] [employer]- All Rights Reserved Reading location - IP/workstation name: [email or web address]
== END ==
LOC: RAD 09:28
PROVIDERS: ATTEND Internal Medicine
DX: N20.0 Calculus of kidney (principal); R10.10 Upper abdominal pain, unspecified
CPT/HCPCS: 76700

== ENCOUNTER → 2018-08-30 | Outpatient (CLI) | payer MEDICARE, BC | LOC: OD 09:14 | PROVIDERS: ATTEND Internal Medicine | DX: R10.10 Upper abdominal pain, unspecified (principal) ==

== ENCOUNTER → 2019-07-31 | Outpatient (CLI) | payer MEDICARE, BC ==
--- NOTE | 2019-07-31 16:00 | RADIOLOGY REPORT (SQ) ---
EXAM DESCRIPTION: HIP BILATERAL COMPLETED DATE/TIME: 07/31/2019 1:59 pm REASON FOR STUDY: M25.551 PAIN IN RIGHT HIP M25.552 PAIN IN LEFT HIP I67.89 OTHER CEREBROVASCULAR D ISEASE COMPARISON: None. NUMBER OF VIEWS: Two views. TECHNIQUE: AP pelvis and additional frog-leg view of the right and left hip. LIMITATIONS: None. FINDINGS: MINERALIZATION: Normal. PRIMARY HIP: No fracture or dislocation. No worrisome bone lesions. OPPOSITE HIP: No fracture or dislocation. No worrisome bone lesions. PUBIS AND ISCHIUM: No fracture. PELVIS: No fracture. SACRUM: No fracture or dislocation. No worrisome bone lesions. LOWER LUMBAR SPINE: Lower lumbar degenerative changes are suggested. SOFT TISSUES: No findings. OTHER: No other significant finding. IMPRESSION: Normal hips. Lumbar degenerative changes. TECHNICAL DOCUMENTATION: JOB ID: [id number] 2010 [employer]- All Rights Reserved Reading location - IP/workstation name: [email or web address]
--- NOTE | 2019-07-31 18:52 | RADIOLOGY REPORT (SQ) ---
EXAM DESCRIPTION: CAROTID DOPPLER COMPLETED DATE/TIME: 07/31/2019 5:44 pm REASON FOR STUDY: CEREBROVASCULAR DISEASE I67.89 OTHER CEREBROVASCULAR DISEASE COMPARISON: 03/26/2018 TECHNIQUE: Grayscale ultrasound, Doppler velocity and spectra, and color Doppler images acquired of the extra-cranial carotid and vertebral arteries. Images stored on PACS. LIMITATIONS: None. FINDINGS: RIGHT CAROTID CCA Velocities: Within normal limits. ICA Velocities Peak systolic 128 cm/s. End diastolic 47 cm/s. Proximal ICA/CCA peak systolic ratio 1.82. Very high velocity in the ECA. 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 VERTEBRAL ARTERIES: Antegrade flow. Normal waveforms. SUBCLAVIAN ARTERIES: No finding. OTHER: No other significant finding. IMPRESSION: None occlusion of the left ICA. No significant stenosis on the right side. High flow v elocity is seen in the right ECA, however. COMMENT: Quality ID #[id number]: Velocity criteria are extrapolated from the diameter data as defined by t t[place] [employer] in Ultrasound Consensus Conference. Radiology 2003: 229; 340-346. TECHNICAL DOCUMENTATION: JOB ID: [id number] 2010 [employer]- All Rights Reserved Reading location - IP/workstation name: [email or web address]
== END ==
LOC: SP 13:32
PROVIDERS: ATTEND Internal Medicine
DX: M25.551 Pain in right hip (principal); M25.552 Pain in left hip; I67.89 Other cerebrovascular disease; M47.816 Spondylosis without myelopathy or radiculopathy, lumbar region
CPT/HCPCS: 73522; 93880